=== PATIENT | female | born 1985 | race Caucasian/White ===

== ENCOUNTER 2019-06-20 01:21 | Inpatient (IN) ==
[2019-06-20] MEDS ORDERED: ALUMINUM/MAGNESIUM SUSP 30 ML UDC PO PRN ×2 (02:31→10:59)
[2019-06-20] MEDS ORDERED: SODIUM CHLORIDE 0.65% NA SOLN 45 ML (OCEAN) PRN ×2 (02:31→10:59)
[2019-06-20] MEDS ORDERED: ACETAMINOPHEN 325 MG TAB PO PRN ×2 (02:31→10:59)
[2019-06-20] MEDS ORDERED: BISMUTH SUBSALICYLATE PER ML OMNICELL CHARGE PO PRN ×2 (02:31→10:59)
[2019-06-20] MEDS ORDERED: MAGNESIUM HYDROXIDE SUSP 30 ML UDC PO PRN ×2 (02:31→10:59)
[2019-06-20] MEDS ORDERED: ZOLPIDEM TARTRATE 10 MG TAB PO PRN ×2 (02:33→11:08)
[2019-06-20] MEDS ORDERED: PATIENT'S ALLERGY INFO NEEDS ENTERED SCH (02:45)
[2019-06-20] MEDS ORDERED: METFORMIN HCL 500 MG TAB PO SCH (09:00)
[2019-06-20] MEDS ORDERED: CHLORPROMAZINE HCL 100 MG TABLET PO SCH (09:00)
[2019-06-20] MEDS ORDERED: METOPROLOL SUCC 25MG EXT REL TAB PO SCH (09:00)
[2019-06-20] MEDS ORDERED: BENZTROPINE MESYLATE 0.5 MG TAB PO SCH (09:00)
[2019-06-20] MEDS ORDERED: TOPIRAMATE 100 MG TAB PO SCH (09:00)
[2019-06-20] MEDS ORDERED: METOPROLOL SUCC 25MG EXT REL TAB PO ONE (11:30)
[2019-06-20] MEDS: PRAZOSIN HCL 1 MG CAP PO SCH ×2 (12:17→20:29)
[2019-06-20] MEDS: BENZTROPINE MESYLATE 0.5 MG TAB PO SCH ×2 (12:17→20:28)
[2019-06-20] MEDS: TOPIRAMATE 100 MG TAB PO SCH ×2 (12:17→20:30)
[2019-06-20] MEDS: FLUOXETINE HCL 10 MG CAP PO SCH (12:17)
[2019-06-20] MEDS: DIVALPROEX DELAY RELEASE 500 MG TAB PO SCH ×2 (12:18→20:28)
[2019-06-20] MEDS: risperiDONE 1 MG TABLET PO SCH ×2 (12:18→20:30)
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
[2019-06-20] MEDS: CHLORPROMAZINE HCL 100 MG TABLET PO SCH ×2 (14:18→20:30)
[2019-06-20] MEDS: METFORMIN HCL 500 MG TAB PO SCH (17:07)
[2019-06-20] MEDS ORDERED: PRAZOSIN HCL 1 MG CAP PO SCH (22:00)
[2019-06-21] MEDS: DIVALPROEX DELAY RELEASE 500 MG TAB PO SCH (08:05)
[2019-06-21] MEDS: BENZTROPINE MESYLATE 0.5 MG TAB PO SCH (08:05)
[2019-06-21] MEDS: METFORMIN HCL 500 MG TAB PO SCH (08:05)
[2019-06-21] MEDS: TOPIRAMATE 100 MG TAB PO SCH (08:06)
[2019-06-21] MEDS: FLUOXETINE HCL 10 MG CAP PO SCH (08:06)
[2019-06-21] MEDS: risperiDONE 1 MG TABLET PO SCH (08:06)
[2019-06-21] MEDS: PRAZOSIN HCL 1 MG CAP PO SCH (08:06)
[2019-06-21] MEDS: CHLORPROMAZINE HCL 100 MG TABLET PO SCH (08:06)
[2019-06-21] MEDS ORDERED: METOPROLOL SUCC 25MG EXT REL TAB PO SCH (09:00)
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
== END 2019-06-21 13:12 | disposition home or self-care (01) | DRG 883 ==
LOC: 3S 08:49